=== PATIENT | female | born 1975 | race Caucasian/White ===

== ENCOUNTER → 2016-09-23 | Outpatient (CLI) | payer BC ==
[~2016-09-23] MED LIST: ADAL1KIT SC; AMPH10TA2 PO; FOLI1POW10 PO; LEVOPOW36 PO; MELO7.5T6 PO; METH2.5T PO; NAPR-1169 PO; SENN1TAB25 PO
--- NOTE | 2016-09-23 13:31 | MAMMOGRAPHY REPORT ---
BILATERAL DIGITAL SCREENING MAMMOGRAM TOMOSYNTHESIS WITH CAD: 09/23/2016 CLINICAL HISTORY: Routine screening. Patient has no complaints. TECHNIQUE: Breast tomosynthesis in addition to standard 2D mammography was performed. Current study was also evaluated with a Computer Aided Detection (CAD) system. COMPARISON: Comparison is made to exams dated: 09/21/2015 mammogram, 10/21/2013 mammogram, 09/17/2014 yanira mogram, 05/01/2014 mammogram, 10/29/2013 mammogram, and 10/15/2012 mammogram - [facility] nt. BREAST COMPOSITION: The tissue of both breasts is heterogeneously dense, which may obscure small ma sses. FINDINGS: No suspicious masses, calcifications, or areas of architectural distortion are noted in e ither breast. There has been no significant interval change compared to prior exams. IMPRESSION: ACR BI-RADS CATEGORY 1: NEGATIVE There is no mammographic evidence of malignancy. A 1 year screening mammogram is recommended. The p atient will receive written notification of the results. Approximately 10% of breast cancers are not detected with mammography. A negative mammographic repor t should not delay biopsy if a clinically suggestive mass is present. Taryn Arevalo M.D. ah/:09/23/2016 12:23:50 Bobtailer: Barbie العلي(R)(M), [facility] letter sent: Normal 1/2 BI-RADS Code: ACR BI-RADS Category 1: Negative
== END | disposition home or self-care (01) ==
LOC: C.MAMM 09:03
PROVIDERS: ATTEND Nurse Practitioner Women's Health
DX: Z12.31 Encounter for screening mammogram for malignant neoplasm of breast (principal)

== ENCOUNTER → 2016-12-15 | Outpatient (CLI) | payer BC | END | disposition home or self-care (01) | LOC: C.LABBFT 11:11 | PROVIDERS: ATTEND Physician Assistant Medical | DX: E03.9 Hypothyroidism, unspecified (principal) ==

== ENCOUNTER → 2017-03-02 | Outpatient (CLI) | payer BC | END | disposition home or self-care (01) | LOC: C.LABBFT 07:49 | PROVIDERS: ATTEND Physician Assistant Medical | DX: E03.9 Hypothyroidism, unspecified (principal) ==

== ENCOUNTER → 2017-09-26 | Outpatient (CLI) | payer BC ==
[2017-09-26 12:34] LABS: BASO % 1.7 %; BASO ABS # 0.07 K/uL (0-0.2); EOS % 3.8 %; EOS ABS # 0.16 K/uL (0-0.5); HEMATOCRIT 39.2 % (37-47); IG# 0.01 K/uL (0.00-0.02); LYMPH % 37.1 %; LYMPH ABS # 1.55 K/uL (1.2-3.4); MEAN CELL VOLUME 94.7 fL (80-100); MEAN CORPUSCULAR HEMOGLOBIN 31.4 pg (25-34); MEAN CORPUSCULAR HGB CONC 33.2 g/dl (32-36); MEAN PLATELET VOLUME 10.4 fL (7.4-10.4); MONO % 6.7 %; MONO ABS # 0.28 K/uL (0.11-0.59); NEUT % 50.5 %; NEUT ABS # 2.11 K/uL (1.4-6.5); PLATELET COUNT 374 K/uL (130-400); RED CELL DISTRIBUTION WIDTH CV 12.8 % (11.5-14.5); WHITE BLOOD COUNT 4.18 K/uL (4.8-10.8)
== END | disposition home or self-care (01) ==
LOC: C.LABBFT 11:00
PROVIDERS: ATTEND Physician Assistant Medical
DX: R53.83 Other fatigue (principal)

== ENCOUNTER → 2017-09-29 | Outpatient (CLI) | payer BC ==
--- NOTE | 2017-10-02 13:59 | MAMMOGRAPHY REPORT ---
BILATERAL DIGITAL SCREENING MAMMOGRAM TOMOSYNTHESIS WITH CAD: 09/29/2017 CLINICAL HISTORY: Routine screening. TECHNIQUE: Breast tomosynthesis in addition to standard 2D mammography was performed. Current study was also evaluated with a Computer Aided Detection (CAD) system. COMPARISON: Comparison is made to exams dated: 09/23/2016 mammogram, 09/21/2015 mammogram, 09/17/2014 yanira mogram, 10/21/2013 mammogram, 10/15/2012 mammogram, and 06/29/2011 mammogram - [facility] er. BREAST COMPOSITION: The tissue of both breasts is heterogeneously dense, which may obscure small mas ses. FINDINGS: There are new grouped calcifications within the left medial breast at approximately 9:00. Additionally, there is a rounded 9 mm asymmetry seen in association with the calcifications on the to mosynthesis images. Recommend spot modification views and breast ultrasound for further evaluation. The remainder of both breasts are stable compared to prior exams, without suspicious masses, calcific ations, or areas of architectural distortion noted. A linear scar marker denotes a scar on the left upper outer breast. IMPRESSION: ACR BI-RADS CATEGORY 0: INCOMPLETE EVALUATION: NEED ADDITIONAL IMAGING EVALUATION New grouped calcifications and an associated asymmetry within the left 9:00 breast, for which additio nal imaging evaluation is recommended. The patient will be called to schedule an appointment. Approximately 10% of breast cancers are not detected with mammography. A negative mammographic report should not delay biopsy if a clinically suggestive mass is present. Taryn Arevalo M.D. /:09/29/2017 16:27:43 Wood Caulker: Ghada العلي(R)(M), [facility] letter sent: Addl Imaging 0 BI-RADS Code: ACR BI-RADS Category 0: Incomplete Evaluation: Need Additional Imaging Evaluation
== END | disposition home or self-care (01) ==
LOC: C.MAMM 08:18
PROVIDERS: ATTEND Obstetrics & Gynecology
DX: Z12.31 Encounter for screening mammogram for malignant neoplasm of breast (principal); R92.1 Mammographic calcification found on diagnostic imaging of breast; N64.89 Other specified disorders of breast

== ENCOUNTER → 2017-10-02 | Outpatient (CLI) | payer BC | END | disposition home or self-care (01) | LOC: C.PAPS 09:55 | PROVIDERS: ATTEND Obstetrics & Gynecology | DX: Z01.419 Encounter for gynecological examination (general) (routine) without abnormal findings (principal) ==

== ENCOUNTER → 2017-10-03 | Outpatient (CLI) | payer BC ==
--- NOTE | 2017-10-03 14:59 | MAMMOGRAPHY REPORT ---
UNILATERAL LEFT DIGITAL DIAGNOSTIC MAMMOGRAM AND TARGETED LEFT ULTRASOUND: 10/03/2017 CLINICAL HISTORY: Callback from screening mammogram for left breast calcifications and asymmetry. TECHNIQUE: Spot magnification left CC and ML views were obtained. COMPARISON: Comparison is made to exams dated: 09/23/2016 mammogram, 09/29/2017 mammogram, 09/21/2015 ma mmogram, 09/17/2014 mammogram, 10/29/2013 mammogram, and 10/21/2013 mammogram - [facility]. BREAST COMPOSITION: The tissue of the left breast is heterogeneously dense, which may obscure small masses. FINDINGS: Spot magnification views demonstrate new grouped pleomorphic calcifications in the left bernardo ast at approximately 9:00. Additionally, there is a nodular 9 mm asymmetry seen in association with the calcifications on the true lateral view, for which ultrasound was performed. The total extent of the findings measures approximately 2.8 x 1.8 x 1.6 cm mammographically. Targeted ultrasound was performed of the area of the asymmetry and calcifications within the left 9:0 0 breast. In the left 9:00 periareolar breast, there is an irregular hypoechoic mass which measures 1.1 x 0.9 x 0.7 cm. Other surrounding ill-defined hypoechoic tissue is also seen, which contains ech ogenic foci which correspond with the mammographic calcifications. The total extent of the abnormali ty measures approximately 2.8 x 1.1 cm on the ultrasound. These findings correspond with the mammogr aphic findings and are highly suspicious for malignancy. Ultrasound-guided biopsy is recommended for further evaluation. IMPRESSION: ACR BI-RADS CATEGORY 5: HIGHLY SUGGESTIVE OF MALIGNANCY, TARGETED ULTRASOUND ACR BI-RADS CATEGORY 5: HIGHLY SUGGESTIVE OF MALIGNANCY Irregular hypoechoic 1.1 cm mass and surrounding ill-defined hypoechoic tissue as well as associated grouped pleomorphic calcifications seen within the left 9:00 breast. The total extent of the abnorma lity measures 2.8 x 1.8 x 1.6 cm. Findings are highly suspicious for malignancy and ultrasound-guide d core needle biopsy with specimen radiography is recommended for further evaluation. A phone call was made to the physician's office to confirm faxed results were received. The patient has been verbally notified of the results. She tentatively scheduled the biopsy before leaving [facility]. Approximately 10% of breast cancers are not detected with mammography. A negative mammographic report should not delay biopsy if a clinically suggestive mass is present. Taryn Arevalo M.D. ah/:10/03/2017 12:16:47 Contractor Buyer: Ghada SAUCEDO)(Anabella), [facility] letter sent: Abnormal 4/5 BI-RADS Code: ACR BI-RADS Category 5: Highly Suggestive Of Malignancy Ultrasound BI-RADS: ACR BI-RAD S Category 5: Highly Suggestive Of Malignancy
== END | disposition home or self-care (01) ==
LOC: C.MAMM 10:24
PROVIDERS: ATTEND Obstetrics & Gynecology
DX: R92.1 Mammographic calcification found on diagnostic imaging of breast (principal); N63.21 Unspecified lump in the left breast, upper outer quadrant

== ENCOUNTER → 2017-10-04 | Outpatient (CLI) | payer BC ==
--- NOTE | 2017-10-04 10:04 | Discharge Instructions ---
Discharge Instructions Procedure Procedure Date: Oct 04, 2017. Reason for visit: Left Mass/Calcs. Discharge Discharge Date: Oct 04, 2017. Discharge Diagnosis: status post breast biopsy Instructions Activity Recommendations: Additional Limitations (see below) Return to School/Work: no limitations Recommended Home Diet: No Limitations Provider Instructions: ACTIVITY RECOMMENDATIONS: * No lifting, pushing, pulling or exercising the affected side for three days. RETURN TO SCHOOL/WORK: * You may return to work/school after the procedure, but do not perform any strenuous activities for 24 to 48 hours. MEDICATIONS: * Tylenol (two 325 mg) every four to six hours if needed for mild pain (if not allergic to Tylenol). DIET: * Resume previous diet. SPECIAL CARE INSTRUCTIONS: * Keep biopsy site dry for 24 hours. May shower after 24 hours, but do not soak (bathe) incision. * May remove Tegaderm (plastic patch) tomorrow AFTER showering. * Leave the steri-strips on for one week. Allow the steri-strips to fall off by themselves. If not off after one week, you may remove them. You may place a Bandaid crosswise over the strips, if desired. * Apply ice 10 minutes on and 10 minutes off as needed. * Wear a bra at bedtime to sleep more comfortably for 2-3 days. * Your referring physician should have the results after approximately 5 to 7 business days. * Call for unusual bleeding, fever, drainage, etc or if you have any questions call during normal business hours or after hours call Dr Arevalo, . FOLLOW UP VISIT: Follow-up with Referring Physician as scheduled. Allergies Coded Allergies: Amoxicillin (Verified Allergy, Unknown, UNCODED, 10/25/13) Cat Dander (Verified Allergy, Unknown, UNCODED, 10/25/13) Penicillins (Verified Allergy, Unknown, 10/25/13) Ania Ruvalcaba Recommendations: Call your doctor if: * Temperature above 101 degrees * Pain not relieved by pain medicine ordered * There is increased drainage or redness from any incision * You have any unanswered questions or concerns. Your Doctors Instructions noted above were prepared by provider Taryn Arevalo. Patient Signature Section: Patient Instructions Signature Page Saba Pacheco Patient (or Guardian) Signature/Date: I have read and understand the instructions given to me by my caregivers. Caregiver/RN/Doctor Signature/Date: The above-named patient and/or guardian has received patient instructions on this date. + Original Patient Signature Page (only) stays with chart. Please make copy for patient.
--- NOTE | 2017-10-04 14:12 | MAMMOGRAPHY REPORT ---
ULTRASOUND GUIDED BIOPSY LEFT BREAST: 10/04/2017 CLINICAL HISTORY: Left 9:00 breast mass and associated calcifications. PATIENT CONSENT: The procedure, risks and benefits were discussed with the patient and informed writt en consent was obtained. A timeout was performed immediately prior to the procedure. PROCEDURE DESCRIPTION: With ultrasound guidance, aseptic technique, and lidocaine as the local anesth etic (1% lidocaine to anesthetize the skin and 1% lidocaine with epinephrine to anesthetize the deepe r tissues), the mass of concern in the left 9:00 breast was sampled 5 times with a 14-gauge Achieve b iopsy needle. Immediately thereafter, with ultrasound guidance, aseptic technique, and lidocaine as the local anesthetic, a metallic localizer clip was placed at the biopsy site. A specimen radiograp h was performed, which shows calcifications to be present within the samples. Direct pressure was ap plied to the site immediately post procedure and hemostasis was achieved. Postprocedure unilateral m ammograms were performed to confirm clip placement. The patient tolerated the procedure without comp lication. She was given wound care instructions. The specimens were sent to pathology for analysis. COMPARISON: Comparison is made to exams dated: 10/03/2017 mammogram, 10/03/2017 ultrasound, 09/29/2017 mammogram, 09/17/2014 mammogram, 10/29/2013 mammogram, and 10/21/2013 mammogram - [facility]ter. IMPRESSION: ULTRASOUND GUIDED BIOPSY Ultrasound-guided core needle biopsy of the left 9:00 breast mass and associated calcifications, with clip placement. The patient will receive pathology results from her referring provider. If patholo gy results are malignant, recommend preoperative bilateral breast MRI given the dense breast parjumay huy mammographically. Taryn Arevalo M.D. /:10/04/2017 10:06:25 Attending Technologist: Taryn Arevalo MD, [facility] Rotor Winder: Barbie Holm, [facility]
--- NOTE | 2017-10-04 14:15 | MAMMOGRAPHY REPORT ---
UNILATERAL LEFT DIGITAL DIAGNOSTIC MAMMOGRAM TOMOSYNTHESIS: 10/04/2017 CLINICAL HISTORY: Status post left breast biopsy. TECHNIQUE: Breast tomosynthesis in addition to standard 2D mammography was performed. Postprocedura l left CC and ML tomosynthesis images were obtained. COMPARISON: Comparison is made to exams dated: 10/03/2017 mammogram, 10/03/2017 ultrasound, 09/29/2017 mammogram, 09/23/2016 mammogram, 09/21/2015 mammogram, and 09/17/2014 mammogram - [facility] nter. BREAST COMPOSITION: The tissue of the left breast is heterogeneously dense, which may obscure small masses. FINDINGS: A new biopsy marker clip is seen at the site of the biopsied mass and calcifications within the left 9:00 breast. No significant postbiopsy hematoma is seen. IMPRESSION: POST PROCEDURE IMAGING FOR MARKER PLACEMENT New biopsy clip status post left breast biopsy. Pathology results are pending. Approximately 10% of breast cancers are not detected with mammography. A negative mammographic report should not delay biopsy if a clinically suggestive mass is present. Taryn Arevalo M.D. ah/:10/04/2017 10:17:02 Guest Relations Receptionist: Barbie العلي(R)(M), [facility] BI-RADS Code: Post Procedure Imaging For Marker Placement
== END | disposition home or self-care (01) ==
LOC: C.MAMM 09:32
PROVIDERS: ATTEND Obstetrics & Gynecology
DX: C50.912 Malignant neoplasm of unspecified site of left female breast (principal); R92.0 Mammographic microcalcification found on diagnostic imaging of breast

== ENCOUNTER → 2017-11-07 | Outpatient (CLI) | payer BC ==
[~2017-11-07] MED LIST changes: +ETAN25IN4 PO; +LEVO1IUD2 PV; +LEVO88TA PO; +PRLSR20 PO; +SUMA50TA15 PO
--- NOTE | 2017-11-07 14:06 | ECHOCARDIOGRAM REPORT ---
*NOTICE TO RECEIVING CONSTITUTION PARTY AGENCY This information is strictly Confidential and protected under [place] law. [place] law prohibits you from making any further disclosure of this information unless further disclosure is expressly permitted by the written consent of the person to whom it pertains or is authorized by law. A general authorization for the release of medical or other information is not sufficient for this purpose. Hospital accepts no responsibility if the information is made available to any other person, INCLUDING THE PATIENT. Interpretation Summary * Name: SHIMA PETERSON Study Date: 11/07/2017 12:33 PM BP: 100/70 mmHg * Patient Location: [facility] HR: 71 * : 1975 (M/d/yyyy) Gender: Female Height: 67 in * Age: 41 yrs Ethnicity: [place] Weight: 144 lb * Ordering Physician: Naun Veras * Referring Physician: Naun Veras * Performed By: Meche Razo RDCS * * Reason For Study: BREAST CA * BSA: 1.8 m2 * -- Conclusions -- * Left ventricular systolic function is normal. * Grade I diastolic dysfunction, (abnormal relaxation pattern). * No significant valvular disease Procedure Details * A complete two-dimensional transthoracic echocardiogram was performed (2D, M-mode, Doppler and color flow Doppler). Left Ventricle * The left ventricle is normal in size. * There is normal left ventricular wall thickness. * Ejection Fraction = 65-70%. * Left ventricular systolic function is normal. * Grade I diastolic dysfunction, (abnormal relaxation pattern). * The left ventricular wall motion is normal. Right Ventricle * The right ventricle is normal in size and function. * The right ventricular systolic function is normal as assessed by tricuspid annular plane systolic excursion (TAPSE) (normal >1.5 cm). Atria * The left atrial size is normal. * Right atrial size is normal. Mitral Valve * The mitral valve is grossly normal. * Significant mitral regurgitation is absent. Tricuspid Valve * The tricuspid valve is not well visualized, but is grossly normal. * Significant tricuspid regurgitation is absent. Aortic Valve * The aortic valve is normal in structure and function. * The aortic valve is trileaflet. * No hemodynamically significant valvular aortic stenosis. * There is no significant aortic regurgitation. Pulmonic Valve * The pulmonic valve is not well visualized. Great Vessels * The aortic root is normal size. Pericardium/Pleural * There is no pericardial effusion. Great Vessels * Normal inferior vena cava diameter and respiratory variation suggests normal central venous pressure. MMode 2D Measurements and Calculations IVSd 1.1 cm IVSs 1.6 cm LVIDd 5.0 cm LVIDs 3.1 cm LVPWd 1.0 cm LVPWs 1.4 cm IVS/LVPW 1.1 FS 38.8 % EDV(Teich) 120.9 ml ESV(Teich) 37.5 ml EF(Teich) 68.9 % EDV(cubed) 128.6 ml ESV(cubed) 29.4 ml EF(cubed) 77.1 % % IVS thick 53.8 % % LVPW thick 34.7 % LV mass(C)d 194.0 grams LV mass(C)dI 110.3 grams/m\S\2 LV mass(C)s 163.4 grams LV mass(C)sI 92.9 grams/m\S\2 SV(Teich) 83.3 ml SI(Teich) 47.4 ml/m\S\2 SV(cubed) 99.2 ml SI(cubed) 56.4 ml/m\S\2 Ao root diam 3.4 cm Ao root area 9.2 cm\S\2 LA dimension 3.3 cm LA/Ao 0.96 LVAd ap4 27.4 cm\S\2 LVLd ap4 8.2 cm EDV(MOD-sp4) 78.7 ml EDV(sp4-el) 78.0 ml LVAs ap4 14.5 cm\S\2 LVLs ap4 6.6 cm ESV(MOD-sp4) 28.6 ml ESV(sp4-el) 26.9 ml EF(MOD-sp4) 63.6 % EF(sp4-el) 65.6 % LVAd ap2 28.8 cm\S\2 LVLd ap2 7.9 cm EDV(MOD-sp2) 89.7 ml EDV(sp2-el) 88.7 ml LVAs ap2 14.2 cm\S\2 LVLs ap2 6.5 cm ESV(MOD-sp2) 27.7 ml ESV(sp2-el) 26.4 ml EF(MOD-sp2) 69.2 % EF(sp2-el) 70.2 % LVLd %diff -2.93 % EDV(MOD-bp) 85.2 ml LVLs %diff -1.97 % ESV(MOD-bp) 28.4 ml EF(MOD-bp) 66.7 % SV(MOD-sp4) 50.0 ml SI(MOD-sp4) 28.5 ml/m\S\2 SV(MOD-sp2) 62.1 ml SI(MOD-sp2) 35.3 ml/m\S\2 SV(MOD-bp) 56.8 ml SI(MOD-bp) 32.3 ml/m\S\2 SV(sp4-el) 51.2 ml SI(sp4-el) 29.1 ml/m\S\2 SV(sp2-el) 62.2 ml SI(sp2-el) 35.4 ml/m\S\2 Doppler Measurements and Calculations MV E max enoch 73.8 cm/sec MV A max enoch 89.7 cm/sec MV E/A 0.82 MV dec time 0.23 sec Ao V2 max 136.3 cm/sec Ao max PG 7.4 mmHg Ao max PG (full) 4.2 mmHg LV V1 max PG 3.3 mmHg LV V1 max 90.2 cm/sec
== END | disposition home or self-care (01) ==
LOC: C.CPL 12:28
PROVIDERS: ATTEND Internal Medicine Hematology & Oncology
DX: C50.112 Malignant neoplasm of central portion of left female breast (principal)

== ENCOUNTER → 2017-11-20 | Day surgery (SDC) | payer BC ==
[2017-11-09 15:01] VITALS: BMI 22.0
[~2017-11-20] VITALS: Ht 172.7 cm; Wt 65.0 kg
[~2017-11-20] MED LIST changes: -ADAL1KIT SC; +ATROPINE SULFATE 0.1 MG/ML 5ML SYR IV PRN; +CEFAZOLIN SOD 1 GM VIAL ONE; +CLINDAMYCIN IV 900 MG in DEXTROSE 5% 50ML 44 ML IV SCH; +EpHEDrine SULFATE 50MG/5ML SYR ONE; +EpHEDrine SULFATE INJ 50 MG/ML AMP IV PRN; +FENTANYL CITRATE INJ 50 MCG/1 ML 2 ML VIAL ONE; +HEPARIN SOD (PORCINE) 1000 UNIT/ML 10 ML VIAL ONE; +HYDR-5688 PO; +HYDROCODONE/ACETAMIN 5/325MG TAB PO PRN; +LACTATED RINGER'S 1000ML 1,000 ML IV SCH; -LEVOPOW36 PO; +LIDOCAINE HCL 1% 20 ML VIAL ONE; +LIDOCAINE HCL 2% 2 ML VIAL (20MG/ML) ONE; +MIDAZOLAM HCL 1 MG/ML 2ML VIAL ONE; -NAPR-1169 PO; +ONDANSETRON INJ 2 MG/ML 2 ML VIAL IV PRN; +PROPOFOL IV EMULSION 10 MG/ML 20 ML VIAL ONE; +THROMBIN FOR SOLN 20000 UNIT KIT ONE
[2017-11-20 06:54] VITALS: BP 105/71; PULSE 91; TEMP 36.8; O2SAT 98; Ht 172.7 cm; Wt 65.0 kg
--- NOTE | 2017-11-20 06:57 | History & Physical Bridge Note ---
H&P Re-Evaluation Bridge Note: I have examined the patient, reviewed the History & Physical and in the interval since the performance of the History & Physical I have noted the following changes of clinical significance: No changes noted
--- NOTE | 2017-11-20 09:03 | [facility] Operative Report ---
Operative Report Operative Date November 20, 2017. Pre-Operative Diagnosis Need for chemotherapy Post-Operative Diagnosis Same Procedure(s) Performed Insertion of A-Port in Left Cephalic Vein Surgeon Dr Marie 4Th Grade Math Teacher Surgeon(s) None Estimated Blood Loss 5ml Specimens None Drains None Anesthesia Type MAC Complication(s) none Disposition Recovery Room / PACU I attest to the content of the Intraoperative Record and any orders documented therein. Any exceptions are noted below.
--- NOTE | 2017-11-20 09:12 | Discharge Instructions ---
Discharge Instructions Date of Service November 20, 2017. Visit Reason for Visit: Left Breast Cancer Discharge Discharge Diagnosis / Problem: port placement Discharge Goals Goal(s): Decrease discomfort, Improve function, Improve disease control Activity Recommendations Activity Limitations: as noted below Lifting Limitations: no more than 25 pounds (for 2 weeks) Exercise/Sports Limitations: until after follow-up appointment May Resume Sexual Activity: when tolerated Shower/Bathe: tomorrow Driving or Machine Use: resume 1 day after discharge Anesthesia . Post Anesthesia Instructions: If you have had General Anesthesia or IV Sedation: * Do not drive today. * Resume driving when surgeon permits. * Do not make important decisions or sign legal documents today. * Call surgeon for: 1. Temperature elevations greater than 101 degrees F. 2. Uncontrollable pain. 3. Excessive bleeding. 4. Persistent nausea and vomiting. 5. Medication intolerance (nausea, vomiting or rash). * For nausea and vomiting use only clear liquids such as: tea, soda, bouillon until nausea subsides, then gradually increase diet as tolerated. * If you have any concerns or questions, call your surgeon's office. If physician is unavailable and it is an emergency, call 911 or go to the nearest emergency room. . Instructions / Follow-Up Instructions / Follow-Up SPECIAL CARE INSTRUCTIONS: * Cover incisions and change daily for comfort/drainage. * May use ibuprofen for pain as tolerated. * Expect some swelling and bruising. Call your doctor if: * Temperature above 101 degrees * Pain not relieved by pain medicine ordered * There is increased drainage or redness from any incision * You have any unanswered questions or concerns [phone]. FOLLOW UP VISIT: If not already scheduled, please call the office for a follow-up visit. for 2 weeks - suture removal OFFICE PHONE NUMBER: Dr. Marie Office Diet Recommendations Recommended Home Diet: resume previous diet Procedures Procedures Performed: Insertion of A-Port in Left Cephalic Vein Pending Studies Studies pending at discharge: no Medical Emergencies . Who to Call and When: Medical Emergencies: If at any time you feel your situation is an emergency, please call 911 immediately. . Non-Emergent Contact Non-Emergency issues call your: Primary Care Provider, Surgeon . . "Provider Documentation" section prepared by John Marie. .
[2017-11-20 09:35] VITALS: BP 100/46; PULSE 83; TEMP 36.8; O2SAT 98
--- NOTE | 2017-11-20 09:36 | Anesthesiology Progress Note ---
Anesthesia Post Op Note Date & Time November 20, 2017 at 09:36 Vital Signs Pain Intensity: 0 Vital Signs Past 12 Hours Date Time Temp Pulse Resp B/P (MAP) Pulse Ox O2 Delivery O2 Flow Rate FiO2 11/20/17 09:30 36.3 89 16 99/54 99 Room Air 11/20/17 09:20 90 16 103/59 99 Room Air 11/20/17 09:10 36.2 101 18 102/49 100 Oxymask 3 11/20/17 06:54 36.8 91 18 105/71 (82) 98 Room Air Notes Mental Status: alert / awake / arousable, participated in evaluation Pt Amnestic to Procedure: Yes Nausea / Vomiting: adequately controlled Pain: adequately controlled Airway Patency, RR, SpO2: stable & adequate BP & HR: stable & adequate Hydration State: stable & adequate Anesthetic Complications: no major complications apparent
--- NOTE | 2017-11-20 09:56 | DIAGNOSTIC IMAGING REPORT ---
CHEST ONE VIEW PORTABLE CLINICAL HISTORY: A-Port catheter placement COMPARISON STUDY: 12/27/2012 FINDINGS: The cardiac and mediastinal contours are normal. There is no evidence of focal pulmonary consolidation. There is no evidence of failure. No pleural effusions are visualized.[ There has been interval placement of a left-sided A-Port catheter. The tip projects over the superior vena cava. There is no pneumothorax. IMPRESSION: No pneumothorax status post placement of a left-sided A-Port catheter. Tip projects over the superior vena cava. Electronically signed by: Lorne Walker M.D. 11/20/2017 9:55 AM Dictated Date/Time: 11/20/2017 9:55 AM
[2017-11-20 10:10] VITALS: BP 108/50; PULSE 75; TEMP 36.8; O2SAT 98
--- NOTE | 2017-11-20 11:01 | OPERATIVE REPORT ---
DATE OF OPERATION: 11/20/2017 NAME OF OPERATION: Access port placement. PREOPERATIVE DIAGNOSIS: Breast cancer. POSTOPERATIVE DIAGNOSIS: Breast cancer. STAFF SURGEON: John Marie MD ANESTHESIA: Plain lidocaine 1% with sedation. DESCRIPTION OF PROCEDURE: The patient was brought in the operating room and placed on the operating table in supine position. A towel roll was placed between her shoulders. Her chest was prepped and draped in usual fashion. Plain lidocaine 1% was used to anesthetize the skin and subcutaneous tissue in the left upper chest. Incision was made carrying dissection down identifying the deltopectoral groove and cephalic vein. The vein was ligated distally using 2-0 silk suture and then partially opened. Catheter passed into the superior vena cava under fluoroscopy, secured using 2-0 silk suture. It was aspirated and flushed with heparinized solution. A pocket was fashioned in the chest wall. The port was attached to the catheter, placed into the pocket and secured to the chest wall using 3-0 Prolene suture. The port was aspirated and flushed with heparinized solution. The site was irrigated with antibiotic solution. Subcutaneous tissue reapproximated using 2-0 chromic suture and then the skin reapproximated using 5-0 Prolene suture. Dressing applied and the patient transferred to recovery room in stable condition. I attest to the content of the Intraoperative Record and any orders documented therein. Any exception s are noted below.
== END | disposition home or self-care (01) ==
LOC: C.ACU 06:22
PROVIDERS: ATTEND Surgery
DX: C50.919 Malignant neoplasm of unspecified site of unspecified female breast (principal); E03.9 Hypothyroidism, unspecified; Z87.891 Personal history of nicotine dependence; Z85.43 Personal history of malignant neoplasm of ovary; Z79.899 Other long term (current) drug therapy; Z88.0 Allergy status to penicillin; Z88.1 Allergy status to other antibiotic agents; Z98.890 Other specified postprocedural states; Z90.89 Acquired absence of other organs; Z98.818 Other dental procedure status; Z83.3 Family history of diabetes mellitus; Z80.41 Family history of malignant neoplasm of ovary; Z80.3 Family history of malignant neoplasm of breast; Z82.61 Family history of arthritis

== ENCOUNTER → 2018-03-05 | Outpatient (CLI) | payer BC ==
[~2018-03-05] MED LIST changes: -ATROPINE SULFATE 0.1 MG/ML 5ML SYR IV PRN; -CEFAZOLIN SOD 1 GM VIAL ONE; -CLINDAMYCIN IV 900 MG in DEXTROSE 5% 50ML 44 ML IV SCH; +DEXA0.5E3 PO; +DOCU100C31 PO; -ETAN25IN4 PO; -EpHEDrine SULFATE 50MG/5ML SYR ONE; -EpHEDrine SULFATE INJ 50 MG/ML AMP IV PRN; -FENTANYL CITRATE INJ 50 MCG/1 ML 2 ML VIAL ONE; -HEPARIN SOD (PORCINE) 1000 UNIT/ML 10 ML VIAL ONE; -HYDR-5688 PO; -HYDROCODONE/ACETAMIN 5/325MG TAB PO PRN; -LACTATED RINGER'S 1000ML 1,000 ML IV SCH; -LIDOCAINE HCL 1% 20 ML VIAL ONE; -LIDOCAINE HCL 2% 2 ML VIAL (20MG/ML) ONE; -METH2.5T PO; -MIDAZOLAM HCL 1 MG/ML 2ML VIAL ONE; +NLSI; +NUTR-218 PO; +ONDA4TAB46 PO; -ONDANSETRON INJ 2 MG/ML 2 ML VIAL IV PRN; +PRD/1 PO; +PROC10TA PO; -PROPOFOL IV EMULSION 10 MG/ML 20 ML VIAL ONE; -SENN1TAB25 PO; -THROMBIN FOR SOLN 20000 UNIT KIT ONE
[2018-03-05 08:42] LABS: HEMATOCRIT 29.1 % (37-47); HEMOGLOBIN 9.5 g/dL (12.0-16.0); IG# 0.01 K/uL (0.00-0.02); LYMPH % 7.8 %; LYMPH ABS # 0.71 K/uL (1.2-3.4); MEAN CELL VOLUME 85.6 fL (80-100); MEAN CORPUSCULAR HEMOGLOBIN 27.9 pg (25-34); MEAN CORPUSCULAR HGB CONC 32.6 g/dl (32-36); MEAN PLATELET VOLUME 8.6 fL (7.4-10.4); MONO % 7.2 %; MONO ABS # 0.65 K/uL (0.11-0.59); NEUT % 84.9 %; PLATELET COUNT 186 K/uL (130-400); RED CELL DISTRIBUTION WIDTH CV 17.9 % (11.5-14.5); RED CELL DISTRIBUTION WIDTH SD 53.9 fL (36.4-46.3); WHITE BLOOD COUNT 9.07 K/uL (4.8-10.8)
[2018-03-05 09:01] LABS: ALBUMIN 3.5 gm/dl (3.4-5.0); ALT/SGPT 37 U/L (12-78); AST/SGOT 17 U/L (15-37); BLOOD UREA NITROGEN 11 mg/dl (7-18); CARBON DIOXIDE 26 mmol/L (21-32); CREATININE 0.55 mg/dl (0.60-1.20); GLUCOSE 114 mg/dl (70-99); POTASSIUM 3.5 mmol/L (3.5-5.1); SODIUM 141 mmol/L (136-145)
[2018-03-05 09:10] LABS: ALKALINE PHOSPHATASE 79 U/L (45-117); TOTAL PROTEIN 6.9 gm/dl (6.4-8.2)
== END | disposition home or self-care (01) ==
LOC: C.LABSPEC 08:28
PROVIDERS: ATTEND Internal Medicine Hematology & Oncology
DX: C50.112 Malignant neoplasm of central portion of left female breast (principal); D64.9 Anemia, unspecified

== ENCOUNTER 2023-08-09 19:49 | Observation (INO) ==
[2023-08-09 20:54] LABS: Hematocrit (blood only) 25.2 % (37.0-47.0); Mean Corpuscular Hemoglobin 27.9 pg (25.0-34.0); Mean Corpuscular Hgb Conc 31.7 g/dL (32.0-36.0); Mean Corpuscular Volume 87.8 fL (80.0-100.0); Mean Platelet Volume 9.2 fL (9.4-12.4); Platelet Count 491 K/uL (130-400); RDW Coefficient of Variation 12.9 % (11.5-14.5); RDW Standard Deviation 41.2 fL (36.4-46.3); Red Blood Count 2.87 M/uL (4.20-5.40); White Blood Count 4.59 K/ul (4.8-10.8)
[2023-08-09 21:08] LABS: Alanine Aminotransferase 8 U/L (7-52); Albumin Globulin Ratio 1.7 (0.9-2); Alkaline Phosphatase 57 U/L (34-104); Anion Gap 5 (3-11); Aspartate Aminotransferase 15 U/L (13-39); BUN Creatinine Ratio 15.1 (10-20); Bilirubin,Total 0.2 mg/dl (0.2-1.0); Blood Urea Nitrogen 13 mg/dl (6-23); Carbon Dioxide 28 mmol/L (21-32); Chloride 106 mmol/L (98-107); Creatinine Clr Calc Pharmacy 76.9 ml/min; Est GFR (African American) 91.9 ml/min; Est GFR (Non-African American) 79.3 ml/min; Globulin 2.4 gm/dl (2.5-4.0); Glucose 123 mg/dl (70-99(Fasting)); Potassium 3.7 mmol/L (3.5-5.1); Sodium 139 mmol/L (136-145); Total Protein 6.4 gm/dl (6.0-8.3)
[2023-08-09 21:13] LABS: Troponin I High Sensitivity < 2.3 pg/ml (0-14)
[2023-08-09 21:22] LABS: Partial Thromboplastin Ratio 0.9; Partial Thromboplastin Time 25 Seconds (21-31); Prothrombin Time 11.1 Seconds (9.0-12.0)
[2023-08-09] MEDS ORDERED: SODIUM CHLORIDE 0.9% 250 ML IV PRN (22:06)
--- NOTE | 2023-08-09 22:12 | Emergency Department Note ---
Impression & Plan Acute lower GI bleeding ADMIT ED Provider Note HPI: History obtained from patient. The patient is a 47-year-old female with history of breast cancer, no longer undergoing any chemotherapy or radiation therapy, presents emergency department with chief complaint of progressively worsening rectal bleeding over the course of the past several months. Patient states that every morning she is having episodes of rectal bleeding. Patient states that she has also been having increasing shortness of breath with exertion over about the past 2 weeks. Patient saw her PCP yesterday and had blood work done and her hemoglobin was 7.9. This is an acute change from the fall when her hemoglobin was normal. Patient was therefore advised to come to the emergency department after discussing this with multiple outpatient providers. On arrival here to the ED the patient is hemodynamically stable, she is in no acute distress on my initial assessment. ROS: - Per HPI Differential Diagnosis: Lower GI hemorrhage, external hemorrhoids, internal hemorrhoids, colonic AVM, colon cancer, symptomatic anemia, amongst other potential pathologies. *Outpatient medications and allergy history reviewed. PE: General: Alert HEENT: Normocephalic, trachea midline Eyes: Extraocular eye movement is intact, no scleral erythema Pulmonary: Clear to auscultation bilaterally, no wheezing Cardio: Regular rate and rhythm GI: Abdomen is soft to palpation, noninvasive rectal examination performed with female RN at the bedside shows evidence of external hemorrhoids without active bleeding : No suprapubic tenderness MSK: No evidence of trauma or malformation of the extremities, no edema Skin: No evidence of rash Neuro: Alert, no focal deficits Psychiatric: Cooperative INDEPENDENT INTERPRETATIONS: telemetry monitor: (As interpreted by myself): - An order was placed for continuous cardiac monitoring - Patient was noted to be in sinus rhythm with a rate of 75 EKG: (As interpreted by myself): Rate: 84 Rhythm: Normal sinus rhythm Intervals: Within normal limits ST changes: No ST elevation Time: 2027 Interventions provided in ED: -Packed red blood cell transfusion Medical Decision Making: IV was established and lab work obtained, patient was placed on equipment monitor phototypesetting. Lab work shows mild leukopenia at 4.59, hemoglobin is 8.0 compared to 7.9 yesterday however patient had a normal hemoglobin in April 2023. Platelet count is 491, CMP does not show any critical findings. BUN is normal. Troponin is negative. EKG per my interpretation shows normal sinus rhythm with a rate of 84. Patient's MCV is normal, low suspicion that this is related to iron deficiency at this time, given the patient's complaint of near daily rectal bleeding over the past 2 months I suspect that this is related to chronic lower GI bleed now with symptomatic anemia. Patient does not have any abdominal pain therefore CT imaging of the abdomen pelvis was not ordered. Patient does have evidence of external hemorrhoids on exam. I discussed blood transfusion with the patient, she is in agreement. Patient was ordered 1 unit packed red blood cells. Patient consented to blood transfusion, will plan for admission to the hospitalist service for further management and GI consultation. Patient and her are in agreement to this plan. [facility] hospitalist service was consulted for admission and the patient was placed for admission in stable condition. Consultants/Discussions held with other healthcare providers: -Hospitalist service, Dr. Cisneros Disposition discussion held by myself with: -Patient Diagnosis: 1. Symptomatic anemia, acute 2. Lower GI bleed, acute Disposition: Admission Robbie Artis DO Emergency Medicine Past Med/Surg History Medical History (Updated 08/10/23 @ 01:52 by Robbie Artis DO) Sensorineural hearing loss (SNHL) of left ear with restricted hearing of right ear Invasive ductal carcinoma of breast Nephrolithiasis Retinal detachment Attention deficit disorder (ADD) Rectal bleeding Rheumatoid arthritis REASON FOR CHRONIC STEROID USE GERD (gastroesophageal reflux disease) Cancer BREAST, CHEMO 10/2017 - 03/05/18 AND THEN WILL CONTINUE TARGET THERAPY notes she had some minimal genetic testing which was negative Hypothyroidism Anemia Anxiety Migraine Surgical History Hx of breast biopsy History of vascular access device POWERPORT Hx of bilateral mastectomy WITH RECONSTRUCTION (04/23/2018) for breast cancer chemo Hx of hemorrhoidectomy x2 History of surgery on arm right WRIST TENDON REPAIR cesar 2016 History of colonoscopy 2019 History of esophagogastroduodenoscopy (EGD) History of tooth extraction WTE History of adenoidectomy History of tonsillectomy Family History Father Obesity Arthritis Mother Bronchiectasis Depression Migraine headache Grandmother (Maternal) Alzheimer disease Breast cancer Diabetes Ovarian cancer Uncle Diabetes paternal Grandfather (Paternal) Diabetes Other Cancer Lung disease Denies family history of Colorectal cancer Colonic polyp Social History (Updated 03/02/23 @ 08:24 by Ava Shipman LPN) Smoking Status: Never smoker Age Started Using Tobacco: 16; Age Quit Using Tobacco: 32; packs per day: 0.25; Second Hand Exposure: No; Do You Dip or Chew Tobacco: No; Hx Alcohol Use: Yes Alcohol type: beer Alcohol Intake Frequency: Monthly or Less Hx Substance Use: No Preferred Language: Serbian Communication Ability: Effective Visual Impairment: No Limitations Hearing Ability: Use of Hearing Aid Cub Reporter Required: No Beliefs That Will Affect Care: None marital status: Current Living Situation: Spouse Current Living Situation Comment: current occupational status: employed current occupation: [employer] Feels Safe at Home: Yes Diet: regular caffeine: Yes Dental Care, Regularly: Yes Physical Activity Frequency: Does not Exercise Seatbelt Use: always Assistive Devices: Glasses and Hearing Aid - Bilateral Allergies Allergies Allergy/AdvReac Type Severity Reaction Status Date / Time amoxicillin Allergy Unknown RASH, ITCHY Verified 03/02/23 08:16 cat dander Allergy Unknown EYE Verified 03/02/23 08:16 ITCHINESS AND WATERY Penicillins Allergy Unknown RASH AND Verified 03/02/23 08:16 ITCHY Home Meds Home Medications Medication Instructions Recorded Confirmed meloxicam 7.5 mg tablet 7.5 mg PO PM ##0 06/16/16 08/09/23 levonorgestrel 21 mcg/24 hours (8 1 device intrauterine ONCE ##0 11/09/17 08/09/23 yrs) 52 mg intrauterine device (Mirena) biotin 5 mg tablet 1 tab PO QAM 04/19/18 08/09/23 Lactobacillus acidophilus 10 10,000,000 cell PO QAM 01/04/19 08/09/23 billion cell capsule (Probiotic) dextroamphetamine-amphetamine 20 20 mg PO QAM 01/04/19 08/09/23 mg tablet (Adderall) docusate sodium 100 mg capsule 200 mg PO BID 03/02/19 08/09/23 methylprednisolone 4 mg tablet 4 - 8 mg PO DAILY PRN rheumatoid 09/05/22 08/09/23 flares turmeric 400 mg capsule 400 mg PO BID 09/05/22 08/09/23 abatacept 125 mg/mL subcutaneous 125 mg subcut .weekly 09/06/22 08/09/23 syringe (Orencia) cholecalciferol (vitamin D3) 25 25 mcg PO BID 03/03/23 08/09/23 mcg (1,000 unit) capsule gabapentin 100 mg capsule 100 - 200 mg PO DAILY PRN hot 08/09/23 08/09/23 flashes levothyroxine 100 mcg tablet 100 mcg PO DAILYBB 08/09/23 08/09/23 pantoprazole 40 mg tablet,delayed 40 mg PO QAM 08/09/23 08/09/23 release (Protonix) Previous Rx's Medication Instructions Recorded potassium chloride 20 mEq 20 meq PO BID #180 tabs 09/05/22 tablet,extended release sumatriptan succinate 100 mg tablet 100 mg PO .COMPLEX PRN migraine 09/05/22 headache 30 days #9 tabs nortriptyline 10 mg capsule 10 mg PO HS #30 caps 09/26/22 Results & Data (ED) Vital Signs Vital Signs - 24 hr 08/09/23 20:01 08/09/23 20:07 08/09/23 20:07 Temperature 36.5 C Temperature Source Temporal Artery Scan Pulse Rate - Lying 80 Pulse Rate - Sitting 96 H Pulse Rate - Standing 91 H Pulse Rate 93 H Respiratory Rate 17 Respiratory Effort / Characteristics Non-Labored Spontaneous Respiratory Depth Normal Respiratory Pattern Regular Blood Pressure - Lying 102/66 Blood Pressure - Sitting 130/91 Blood Pressure- Standing 130/84 Blood Pressure 110/74 Blood Pressure [Right Arm] Blood Pressure Mean 86 Blood Pressure Mean [Right Arm] Pulse Oximetry 100 97 Oxygen Delivery Method Room Air Room Air Sepsis Recent Fever Within 48 Hours No Sepsis New/Unexplained Change in Mental Status N/A Sepsis Action Taken by Nursing No Action Required 08/09/23 23:12 08/09/23 23:15 08/09/23 23:15 Temperature 36.6 C Temperature Source Oral Pulse Rate - Lying Pulse Rate - Sitting Pulse Rate - Standing Pulse Rate 81 80 Respiratory Rate 20 Respiratory Effort / Characteristics Respiratory Depth Respiratory Pattern Blood Pressure - Lying Blood Pressure - Sitting Blood Pressure- Standing Blood Pressure 130/84 Blood Pressure [Right Arm] 100/62 Blood Pressure Mean 99 Blood Pressure Mean [Right Arm] 74 Pulse Oximetry 99 Oxygen Delivery Method Sepsis Recent Fever Within 48 Hours Sepsis New/Unexplained Change in Mental Status Sepsis Action Taken by Nursing 08/09/23 23:29 08/09/23 23:44 08/10/23 00:14 Temperature 36.5 C 36.4 C L 36.5 C Temperature Source Oral Oral Oral Pulse Rate - Lying Pulse Rate - Sitting Pulse Rate - Standing Pulse Rate 78 78 72 Respiratory Rate 20 16 16 Respiratory Effort / Characteristics Respiratory Depth Respiratory Pattern Blood Pressure - Lying Blood Pressure - Sitting Blood Pressure- Standing Blood Pressure 93/60 L 93/60 L 111/67 Blood Pressure [Right Arm] Blood Pressure Mean 71 71 81 Blood Pressure Mean [Right Arm] Pulse Oximetry 97 96 98 Oxygen Delivery Method Sepsis Recent Fever Within 48 Hours Sepsis New/Unexplained Change in Mental Status Sepsis Action Taken by Nursing 08/10/23 01:14 Temperature 36.8 C Temperature Source Oral Pulse Rate - Lying Pulse Rate - Sitting Pulse Rate - Standing Pulse Rate 70 Respiratory Rate 16 Respiratory Effort / Characteristics Respiratory Depth Respiratory Pattern Blood Pressure - Lying Blood Pressure - Sitting Blood Pressure- Standing Blood Pressure 92/70 L Blood Pressure [Right Arm] Blood Pressure Mean 77 Blood Pressure Mean [Right Arm] Pulse Oximetry 97 Oxygen Delivery Method Sepsis Recent Fever Within 48 Hours Sepsis New/Unexplained Change in Mental Status Sepsis Action Taken by Nursing Laboratory Data 08/09/23 20:28 08/09/23 20:28 Lab Results 08/09/23 08/09/23 Range/Units 20:28 20:30 WBC 4.59 L (4.8-10.8) K/ul RBC 2.87 L (4.20-5.40) M/uL Hgb 8.0 L (12.0-16.0) g/dl Hct 25.2 L (37.0-47.0) % MCV 87.8 (80.0-100.0) fL MCH 27.9 (25.0-34.0) pg MCHC 31.7 L (32.0-36.0) g/dL RDW Std Deviation 41.2 (36.4-46.3) fL RDW Coeff of Kristine 12.9 (11.5-14.5) % Plt Count 491 H (130-400) K/uL MPV 9.2 L (9.4-12.4) fL PT 11.1 (9.0-12.0) Seconds INR 1.0 (0.9-1.1) APTT 25 (21-31) Seconds PTT Ratio 0.9 Sodium 139 (136-145) mmol/L Potassium 3.7 (3.5-5.1) mmol/L Chloride 106 (98-107) mmol/L Carbon Dioxide 28 (21-32) mmol/L Anion Gap 5 (3-11) BUN 13 (6-23) mg/dl Creatinine 0.86 (0.6-1.2) mg/dl Est Cr Clr Drug Dosing 76.9 ml/min Est GFR ( Amer) 91.9 ml/min Est GFR (Non-Af Amer) 79.3 ml/min BUN/Creatinine Ratio 15.1 (10-20) Glucose 123 H (70-99(Fasting)) mg/dl Calcium 9.0 (8.6-10.3) mg/dl Total Bilirubin 0.2 (0.2-1.0) mg/dl AST 15 (13-39) U/L ALT 8 (7-52) U/L Alkaline Phosphatase 57 (34-104) U/L Troponin I High Sens < 2.3 (0-14) pg/ml Total Protein 6.4 (6.0-8.3) gm/dl Albumin 4.0 (3.4-5.0) gm/dl Globulin 2.4 L (2.5-4.0) gm/dl Albumin/Globulin Ratio 1.7 (0.9-2) Blood Type A Positive Antibody Screen NEGATIVE Crossmatch See Detail Discharge Plan Visit Data Chief Complaint: Rectal Bleed Stated Complaint: RECTAL BLEEDING, BLOOD LEVELS ABNORMAL ED Provider: Robbie Artis Discharge Problem: Acute lower GI bleeding Forms Stand Alone Forms: [facility] Prescriptions Prescriptions: No Action meloxicam 7.5 mg Tablet 7.5 mg PO PM Qty: 0 Mirena 20 mcg/24 hr (5 years) Intrauterine Device 1 device intrauterine ONCE Qty: 0 methylprednisolone 4 mg tablet 4 - 8 mg PO DAILY PRN (Reason: rheumatoid flares) Orencia 125 mg/mL syringe 125 mg subcut .weekly Rx Instructions: fridays nortriptyline 10 mg capsule 10 mg PO HS Qty: 30 11RF sumatriptan succinate 100 mg tablet 100 mg PO .COMPLEX PRN (Reason: migraine headache) 30 Days Qty: 9 3RF Rx Instructions: take 1 tab at onset of headache, may repeat in 2 hrs prn, Limit 2-3 days/week turmeric 400 mg capsule 400 mg PO BID potassium chloride 20 mEq tablet extended release 20 meq PO BID Qty: 180 3RF cholecalciferol (vitamin D3) 25 mcg (1,000 unit) capsule 25 mcg PO BID docusate sodium 100 mg capsule 200 mg PO BID biotin 5 mg Tablet 1 tab PO QAM dextroamphetamine-amphetamine [Adderall] 20 mg tablet 20 mg PO QAM Probiotic 10 billion cell Capsule 10,000,000 cell PO QAM levothyroxine 100 mcg tablet 100 mcg PO DAILYBB pantoprazole [Protonix] 40 mg tablet,delayed release (DR/EC) 40 mg PO QAM gabapentin 100 mg capsule 100 - 200 mg PO DAILY PRN (Reason: hot flashes) Referrals Referrals: Anand Sepulveda MD [Primary Care Provider] -
--- NOTE | 2023-08-09 23:40 | History & Physical Report ---
Date of Service August 09, 2023 Assessment & Plan (1) Lower GI bleed: Plan: Pt is a 47 yo female with PMH of RA (on chronic steroids), GERD, breast cancer (2018) s/p chemo and mastectomy, anxiety, hypothyroidism, and migraine presenting d/t low Hgb on outpatient labs. Lower GI bleed w/ blood loss anemia - recurrent hemorrhoids vs. GI polyp bleed vs. ? - pt is s/p 2 hemorrhoid surgeries in the past - last iron infusion 07/21/2023; receives these monthly - last colonoscopy 12/2022 showed 4 mm polyp in sigmoid colon which was removed; also showed internal hemorrhoids in addition to diverticula - Hgb 8.0 upon admission and pt symptomatic; s/p 1 unit pRBCs in the ER - recheck Hgb after transfusion/with AM labs - GI consulted for possibility of colonoscopy RA - hold home meds while NPO - may use IV tylenol PRN Migraine - IV tylenol PRN as above Hypothyroidism - hold home meds while NPO ADD - hold home meds while NPO Diet: NPO VTE ppx: deferred in setting of active bleed Code: full Dispo: admit to med/tele (2) Migraine without aura, not intractable, without status migrainosus: (3) Hypothyroidism: (4) Rheumatoid arthritis: History of Present Illness Chief Complaint: lower GI bleed Primary Care Provider: Anand Sepulveda MD Pt is a 47 yo female with PMH of RA (on chronic steroids), GERD, breast cancer (2018) s/p chemo and bilateral mastectomy, anxiety, hypothyroidism, and migraine presenting d/t low Hgb on outpatient labs. Pt explains that her bleeding started in June. She has had bleeding hemorrhoids in the past and has had 2 surgeries to fix them. She has not been straining to defecate. She notes that the bleeding occurs daily with bowel movements but the bleeding can last for awhile after her BM so that she needs to wear a pad in her underwear. She describes the bleeding as large bright red clumps that look like "chewed gum." Over the last 1-2 weeks, she has become symptomatic in terms of feeling "not as sharp at work," lightheaded, and fatigued. She was seen by her PCP two days ago who recommended that she come to the ER but she did not want to. She had outpatient labs done that showed Hgb 7.9. She denies anal sex or any trauma to her rectum/anus. She had a colonoscopy done last year. She does have a hx of RA and she notes that when she is bleeding it seems that her RA flares get worse. She had multi-joint pain last week for which she was taking steroids. She took the steroids for 5 days and did a taper of 1 tablet each day starting with 5 tablets (20 mg methylprednisolone). She also takes a nightly meloxicam 7.5mg. She does not use other NSAIDs aside from the occasional (< weekly) Excedrin migraine. In the ER, she was hemodynamically stable with borderline low BP (90s/60s) which she says is normal for her. She was transfused 1u pRBCs. Allergies Allergy/AdvReac Type Severity Reaction Status Date / Time amoxicillin Allergy Unknown RASH, ITCHY Verified 03/02/23 08:16 cat dander Allergy Unknown EYE Verified 03/02/23 08:16 ITCHINESS AND WATERY Penicillins Allergy Unknown RASH AND Verified 03/02/23 08:16 ITCHY Home Medications Medication Instructions Recorded Confirmed Type meloxicam 7.5 mg tablet 7.5 mg PO PM ##0 06/16/16 08/09/23 History levonorgestrel 21 mcg/24 hours (8 1 device intrauterine ONCE ##0 11/09/17 08/09/23 History yrs) 52 mg intrauterine device (Mirena) biotin 5 mg tablet 1 tab PO QAM 04/19/18 08/09/23 History Lactobacillus acidophilus 10 10,000,000 cell PO QAM 01/04/19 08/09/23 History billion cell capsule (Probiotic) dextroamphetamine-amphetamine 20 20 mg PO QAM 01/04/19 08/09/23 History mg tablet (Adderall) docusate sodium 100 mg capsule 200 mg PO BID 03/02/19 08/09/23 History methylprednisolone 4 mg tablet 4 - 8 mg PO DAILY PRN rheumatoid 09/05/22 08/09/23 History flares potassium chloride 20 mEq 20 meq PO BID #180 tabs 09/05/22 08/09/23 Rx tablet,extended release sumatriptan succinate 100 mg tablet 100 mg PO .COMPLEX PRN migraine 09/05/22 08/09/23 Rx headache 30 days #9 tabs turmeric 400 mg capsule 400 mg PO BID 09/05/22 08/09/23 History abatacept 125 mg/mL subcutaneous 125 mg subcut .weekly 09/06/22 08/09/23 History syringe (Orencia) nortriptyline 10 mg capsule 10 mg PO HS #30 caps 09/26/22 08/09/23 Rx cholecalciferol (vitamin D3) 25 25 mcg PO BID 03/03/23 08/09/23 History mcg (1,000 unit) capsule gabapentin 100 mg capsule 100 - 200 mg PO DAILY PRN hot 08/09/23 08/09/23 History flashes levothyroxine 100 mcg tablet 100 mcg PO DAILYBB 08/09/23 08/09/23 History pantoprazole 40 mg tablet,delayed 40 mg PO QAM 08/09/23 08/09/23 History release (Protonix) Past Med/Surg History Medical History Sensorineural hearing loss (SNHL) of left ear with restricted hearing of right ear Invasive ductal carcinoma of breast Nephrolithiasis Retinal detachment Attention deficit disorder (ADD) Rectal bleeding Rheumatoid arthritis REASON FOR CHRONIC STEROID USE GERD (gastroesophageal reflux disease) Cancer BREAST, CHEMO 10/2017 - 03/05/18 AND THEN WILL CONTINUE TARGET THERAPY notes she had some minimal genetic testing which was negative Hypothyroidism Anemia Anxiety Migraine Surgical History Hx of breast biopsy History of vascular access device POWERPORT Hx of bilateral mastectomy WITH RECONSTRUCTION (04/23/2018) for breast cancer chemo Hx of hemorrhoidectomy x2 History of surgery on arm right WRIST TENDON REPAIR cesar 2016 History of colonoscopy 2019 History of esophagogastroduodenoscopy (EGD) History of tooth extraction WTE History of adenoidectomy History of tonsillectomy Family History Father Obesity Arthritis Mother Bronchiectasis Depression Migraine headache Grandmother (Maternal) Alzheimer disease Breast cancer Diabetes Ovarian cancer Uncle Diabetes paternal Grandfather (Paternal) Diabetes Other Cancer Lung disease Denies family history of Colorectal cancer Colonic polyp Social History Smoking Status: Never smoker Age Started Using Tobacco: 16; Age Quit Using Tobacco: 32; packs per day: 0.25; Second Hand Exposure: No; Do You Dip or Chew Tobacco: No; Hx Alcohol Use: No Hx Substance Use: No Preferred Language: Senegalese Communication Ability: Effective Visual Impairment: No Limitations Hearing Ability: Use of Hearing Aid Photogrammetric Surveyor Required: No Beliefs That Will Affect Care: None marital status: Current Living Situation: Spouse Current Living Situation Comment: current occupational status: employed current occupation: [employer] Feels Safe at Home: Yes Diet: regular caffeine: Yes Dental Care, Regularly: Yes Physical Activity Frequency: Does not Exercise Seatbelt Use: always Assistive Devices: None Review of Systems Review of Systems: As per HPI Physical Exam Physical Exam: Constitutional: well appearing, no acute distress HEENT: normocephalic, no conjunctival injection CV: RRR, no murmur, no LE edema Respiratory: CTA bilaterally. No rhonchi, wheezes, or crackles. No increased work of breathing GI: soft, nondistended, nontender, + bowel sounds MSK: no gross deformities noted Skin: warm, dry, no rashes Neuro: alert, oriented, no FND noted Psych: mood and affect congruent Results & Data Results & Data Vital Signs (Past 12 Hours) Vital Signs Temp Pulse Resp BP BP Pulse Ox O2 Del Method 08/09/23 23:29 36.5 C 78 20 93/60 L 97 08/09/23 23:15 100/62 08/09/23 23:15 80 08/09/23 23:12 36.6 C 81 20 130/84 99 08/09/23 20:07 97 Room Air 08/09/23 20:01 36.5 C 93 H 17 110/74 100 Room Air Supervising Physician Co-Signing Physician Notes Attending addendum: I have physically seen this patient, have supervised the medical residents activities, and agree with the H&P unless as otherwise noted. Assessment and Plan: Symptomatic anemia/lower GI bleed- History of 2 hemorrhoid surgeries in the past Bright red blood per rectum noted To receive 1 unit PRBCs from the ED Follow H&H's serially Pantoprazole 40 mg IV daily Most recent colonoscopy 01/06 with 4 mm sigmoid colon polyp that was removed. At that time internal hemorrhoids were noted as well along with diverticula Differential including but not limited to recurrent hemorrhoids, diverticular bleeding, AVMs, others Rheumatoid arthritis- On abatacept subcu weekly Hold meloxicam Medications for hypothyroidism, ADD on hold Remaining orders and notations as noted Resident Activity Tracking Resident Involvement: Resident Care Provided Care Provided: Adult Hospital Medicine
[2023-08-10] MEDS ORDERED: ACETAMINOPHEN 325 MG TAB PO PRN (00:25)
[2023-08-10] MEDS ORDERED: ACETAMINOPHEN 1,000 MG/100 ML VIAL IV PRN (00:25)
[2023-08-10] MEDS ORDERED: ONDANSETRON INJ 2 MG/ML 2 ML VIAL IV PRN (00:25)
[2023-08-10 01:55] VITALS: TEMP 98.2
[2023-08-10] MEDS ORDERED: LEVONORGESTREL (MIRENA) IUD PV SCH (03:15)
--- OUTSIDE RECORDS SUMMARY | 2023-08-10 03:26 | External Medical Summary | Summary of Care ---
Author Name Unknown Organization [facility] Address [address] [facility] [place] [place] [address] Phone [phone] Care Team Providers Care Machinist Class B Name Role Phone Anand Sepulveda MD Primary Care Provi rose Reason for Visit * Reason Comments Rheum Follow Up Follow up - RA Encounter Details Date Type Department Care Team (Late st Contact Info) Description 08/09/2023 9:20 AM EST Office Visit Rheumatology [address] [place] [address] John Ryan MD [address] [place] [address] [place] [address] Rheumatoid arthritis of multiple sites without rheumatoid factor (HCC)*; Encounter for long-term (current) use of medications Allergies Active Allergy Reactions Criticality Noted Date Comments Cat Dander 03/08/2022 Other Reaction(s): EYE ITCHINESS AND WATERY Penicillins Rash 02/20/2008 Feet/legs documented as of this encounter (statuses as of 08/09/2023) Medications Medication Sig Dispensed Refills Start Date End Date Status DOCUSATE SODIUM 50 MG PO CAPS 4 tabs a day 0 Active amphetamine-dextroa mphet ER (ADDERALL XR) 20 MG CP24 Take 1 Capsule by mouth in the morning. Every morning.. 0 01/17/2015 Active Probiotic Product ([facility] ADV PROBIOTIC GUMMIES) CHEW Take by mouth. 0 Active Biotin 1 MG Capsule Take 1 Capsule by mouth in the morning. 0 Active nortriptyline (PAMELOR) 10 MG Capsule Take 1 Capsule by mouth at bedtime. 0 Active Turmeric 500 MG Oral Capsule Take 1 Capsule by mouth in the morning. 0 Active SUMAtriptan Succinate 100 MG Oral Tablet Take 1 Tablet by mouth every 2 hours as needed for Migraine. 0 Active Iron Sucrose 20 MG/ML Intravenous Solution Administer 200 mg intravenously once. 0 Active Folic Acid 1 MG Oral Tablet Take by mouth 1 Tablet in the morning. 90 Tablet 4 04/12/2022 Active Additional Information Patient not taking.Reported on 08/09/2023 Levothyroxine Sodium 100 MCG Oral Tablet (Levoxyl) 0 05/30/2022 Active Ondansetron HCl 8 MG Oral Tablet (Zofran) 0 05/30/2022 Active Pantoprazole Sodium 40 MG Oral Tablet Delayed Release (Protonix) 0 09/27/2022 Active Potassium Chloride ER 20 MEQ Oral Tablet Extended Release 0 09/05/2022 Active Meloxicam 7.5 MG Oral Tablet (Mobic)Indications: Rheumatoid arthritis of multiple sites without rheumatoid factor (HCC) TAKE ONE TABLET BY MOUTH ONE TIME DAILY WITH FOOD OR DRINK 90 Tablet 2 03/24/2023 Active methylPREDNISolone 4 MG Oral Tablet (Medrol)Indications :Rheumatoid arthritis of multiple sites without rheumatoid factor (HCC) TAKE 1 TO 2 TABLETS BY MOUTH EVERY DAY NEEDED FOR ARTHRITIS 60 Tablet 0 06/01/2023 Active Orencia ClickJect 125 MG/ML Subcutaneous Solution Auto-injector (Abatacept) INJECT 125 MG UNDER THE SKIN ONCE A WEEK. 4 mL 5 06/27/2023 Active Cholecalciferol 25 MCG (1000 UT) Oral Capsule daily. 0 03/03/2023 Active Gabapentin 100 MG Oral Capsule (Neurontin) 0 08/06/2023 Active documented as of this encounter (statuses as of 08/09/2023) Active Problems Problem Noted Date Diagnosed Date History of 2019 novel coronavirus disease (COVID -19) 09/01/2020 Rheumatoid arthritis of mult iple sites without rheumatoid factor 01/11/2016 Encounter for long-term (current) use of medicat ions 06/04/2015 Sensorineural hearing loss, bilateral 09/12/2006 Overview: Dr. Clarke Hypothyroidism Allergic rhinitis Invasive ductal carcinoma of breast Overview: left breast documented as of this encounter (statuses as of 08/09/2023) Resolved Problems Problem Noted Date Diagnosed Date Resolved Date COVID-19 virus infection 11/21/2019 Rheumatoid arthritis 016 documented as of this encounter (statuses as of 08/09/2023) Immunizations Name Administration Dates Next Due COVID-19 mRNA, LNP-s, No Pre serve, 2-Dose Series (Moderna) 04/20/2021,10/06/2020,09/08/2020 COVID-19, mRNA, LNP-s, PF, B ooster, 100mcg/0.5mg (Moderna) 11/16/2021 Pneumococcal Polysaccharide PPV23 (Pneumovax) 05/16/2014 Seasonal Influenza, PF, 6 M & above, IM , (FluLaval or Fluzone) 04/30/2021 Seasonal Influenza, Split, I IV3, With Preserve, Inj 04/26/2022,05/21/2020,04/26/2019,04/16,05/17/2016,05/17/2014 documented as of this encounter Social History Tobacco Use Types Packs/Day Years Used Date Smoking Tobacco: Former Cigarettes 0 03/06/1993 - 07/17/2008 Smokeless Tobacco: Never Tobacco Cessation:Counseling Given: Not Answered Alcohol Use Standard Drinks/Week Comments Yes 0 (1 standard drink = 0.6 oz pur e alcohol) 4 beers per month Sex and Gender Information Value Date Recorded Sex Assigned at Female 04/30/2023 7:28 PM EDT Gender Identity Female 04/30/2023 7:28 PM EDT Sexual Orientation Straight 04/30/2023 7: 28 PM EDT Job Start Date Occupation Industry Not on file Not on file Not on file documented as of this encounter Last Filed Vital Signs Vital Sign Reading Time Taken Comments Blood Pressure - - Pulse - - Temperature 36.9 C (98.4 F) 08/09/2023 9:26 AM ES T Respiratory Rate - - Oxygen Saturation - - Inhaled Oxygen Concentration - - Weight 69.4 kg (153 lb) 08/09/2023 9:26 AM EST Height - - Body Mass Index 23.96 01/06/2023 12:53 PM EDT documented in this encounter Progress Notes * John Ryan MD - 08/09/2023 9:26 AM EST Images from the original note were not included. Assessment and Plan Rheumatoid arthritis of multiple sites without rheumatoid factor (HCC) Encounter for long-term (current) use of medications She has some mild ongoing activity of the right thumb and right wrist unfortunately given her chronic anemia have been avoiding adding back methotrexate leflunomide. Will continue with Orencia. Will be getting a blood transfusion and follows closely with Hematology/Oncology for her iron deficiency anemia. Return to clinic with me in 6 months Rheumatology Synopsis: [facility] RA SYNOPSIS Date of RA Diagnosis: 05/17/12 (08/09/2023 9:00 AM) Current Treatment: ABT (08/09/2023 9:00 AM) Previous Treatment: MTX; LEF; ETA; ADA; UPA; SSZ (08/09/2023 9:00 AM) 2009 Classification Criteria: Y (08/09/2023 9:00 AM) Seropositive or seronegative: Seropositive (08/09/2023 9:00 AM) RF and/or CCP: CCP+ (08/09/2023 9:00 AM) Disease activity: Stable Patient History History of Present Illness HPI:47 year old female presented to rheumatology clinic for Rheum Follow Up (Follow up - RA) She is feeling fatigued. She did have labs and her hgb was 7.9. already discussed with PCP about getting PRBCs/ was supposed to get it today but had this appt. So came here. ROS: Review of Systems was asked and the following other significant symptoms are present: fatigue, headaches, weak muscles Rheumatology History Subjective Patient's past history, medications, and allergies were reviewed. Objective Physical Exam Temp 36.9 C (98.4 F) (Infrared ) | Wt 69.4 kg (153 lb) | BMI 23.96 kg/m | BSA 1.81 m Constitutional: no acute distress HEENT: normal: normocephalic, atraumatic; no masses, tenderness, or adenopathy Eyes: PERRLA, sclera and conjunctiva normal Neck: supple, no adenopathy CV: normal rate and rhythm, no murmur, gallops or rub Chest: normal respiratory effort, lungs clear to auscultation and percussion Abdomen: normal: soft, bowel sounds normal, no masses, tenderness or organomegaly Musculoskeletal: Synovitis and tenderness of the right thumb MCP and right wrist. No other sites ofsynovitis or tenderness MSK/Joint exam (Homunculus) MSK Exam findings: Homunculus exam Studies: Labs and Imaging studies reviewed with pertinent findings noted below: Disease Treatment Response CDAI Scoring Patient Global: 80 mm Provider Global: 30 mm Tender (FAIR-28): 2 28 Swollen (FAIR-28): 2 CDAI: 15 CDAI (Clinical Disease Activity Index) [facility] Outcomes measures: Serial CDAI: Synopsis SmartLink 08/09/2023 09:20 CDAI CDAI 15 - Serial CDAI: - Yes - Remission: - No - low disease activity Currently on csDMARD: No Currently on Biologic DMARD: Yes Vaccination status: COVID: Vaccine and/or Health maintenance status Incomplete Influenza:Flu Vaccine pending for this season Pneumococcal:Vaccine and/or Health maintainance status Incomplete Zoster:Vaccine and/or Health Maintainance Incomplete Last Hepatitis and TB testing: Hepatitis B: Not Tested, results not available Hepatitis C: Not Tested, results not available PPD or TB-Gold: Tested, result reviewed No results found for: "HBSAG", "HEPB", "HCVAB" TB GOLD AG NIL Date/Time Value Ref Range Status 07/24/2015 08:52 AM <0.00 IU/mL Final Comment: (NOTE) The Nil tube value is used to determine if the patient has a preexisting immune response which could cause a false-positive reading on the test. In order for a test to be valid, the Nil tube must have a value of <=8.0 IU/mL. The Mitogen control tube is used to assure the patient has a healthy immune status and also serves as a control for correct blood handling and incubation. It is used to detect false-negative readings. The mitogen tube must have a gamma interferon value >= 0.5 IU/mL higher than the value of the Nil tube. The TB Antigen tube is coated with the M tuberculosis specific antigens. For a test to be considered positive the TB antigen tube value minus the Nil tube value must be >=0.35 IU/mL. Data on the performance of the test in children younger than 5 years of age are limited, and the CDC advises that caution is warranted when using the assay in children aged <5 years (MMWR 2010; 59 (RR-05):1-25). For additional information, please refer to: http://education.[employer].Tengion/faq/QFT TB GOLD MITOGEN NIL Date/Time Value Ref Range Status 07/24/2015 08:52 AM >10.00 IU/mL Final Wrap-Up Follow Up: Return in about 7 months (around 03/09/2024). documented in this encounter Nursing Notes * Tanesha Chambers LPN - 08/09/2023 9:24 AM EST Chief Complaint Patient presents with Rheum Follow Up Follow up - RA documented in this encounter Plan of Treatment Upcoming Encounters Date Type Department Care Team (Late st Contact Info) Description 03/14/2024 8:40 AM EDT Office Visit Rheumatology [address] [id number] [employer] [place] [address] John Ryan MD [address] [place] [address] Scheduled Procedures Name Priority Associated Diagnoses Date/Ti me COLONOSCOPY FLEXIBLE PROXIMA L DIAGNOSTIC Recall History of colonic polyps Health Maintenance Due Date Last Done Comments Hepatitis B (1 of 3 - 3-dose series) 1973 Lipid Panel 1973 Depression Screening 1985 HIV Screening 1988 Hepatitis C Screening 12/29/1991 DTaP,Tdap,and Td Vaccines (1 - Tdap) 1992 Pap Smear 1994 Cervical Cancer Screening 12/29/2003 HPV/Co-Test 12/29/2003 Mammogram 2013 Pneumococcal Vaccine: Pediatrics (0 to 5 Years) and At-Risk Patients (6 to 64 Years) (3 - PPSV23 or PCV20) 03/09/2021 03/09/2020, 05/16/2014 TSH 09/24/2022 09/24/2021, 07/11/2019 COVID-19 Vaccine (5 - 2022- season) 2023 11/16/2021, 04/20/2021, 10/06/2020, Additional history exists Influenza Vaccine (FLU shot) (#1) 2023 04/26/2022, 04/30/2021, 05/21/2020, Additional history exists COLONOSCOPY-EVERY 5 YRS AGES 18-100 01/07/2028 01/06/2023, 01/06/2023, 03/05/2020, Additional history exists Colonoscopy Discontinued 01/06/2023, 12/16, 03/05/2020, Additional history exists Colorectal Cancer Screening Discontinued Cologuard Discontinued Fecal Occult Blood Test Discontinued GARDASIL-HPV IMMUNIZATION SERIES Aged Out No longer eligible based on patient's age to complete this topic MENINGOCOCCAL (MENACTRA/MENVEO) Aged Out No longer eligible based on patient's age to complete this topic Sigmoidoscopy Discontinued documented as of this encounter Medical Devices Not on filedocumented as of this encounter Visit Diagnoses Diagnosis Rheumatoid arthritis of multiple sites without rheumatoid factor (HCC)- Primary Rheumatoid arthritis Encounter for long-term (current) use of medications Encounter for long-term (current) use of other medications documented in this encounter Care Teams Machinist Class B Relationship Specialty Start Date End Date Anand Sepulveda MD [address] [place] [address] [place] [address] PCP - General Internal Medicine 06/19/14 documented as of this encounter
--- NOTE | 2023-08-10 09:02 | Gastrointestinal Consultation ---
Date of Consultation August 10, 2023 Assessment & Plan (1) Acute lower GI bleeding: (2) Iron deficiency anemia: Pt is a 47 yo female w hx of breast ca s/p chemo and bilateral mastectomy, RA on steroids, iron deficiency anemia who presented w worsening anemia w increased rectal bleeding. Abd exam benign. Rectal exam showed ext hemorrhoids w ? rectal prolapse, no fissure or stigmata or bleeding. Internal exam wo mass nor bleeding noted. - Monitor blood ct and transfuse prn - CL diet - Tagged RBC study vs CTA if continues to bleed - Avoid straining or constipation by using daily bowel regimen such as Miralax 17g bid or Miralax 17g daily + Colace 200mg daily; add Fiber daily - Consider Surgery eval for hemorrhoidectomy - OP colonoscopy in 4-6 week's time Supervising Physician Co-Signing Physician Notes I saw and evaluated the patient. We were consulted for evaluation of intermittent hematochezia. Of note the patient has had symptoms ongoing for over a month she describes having formed bowel movements with red blood in the toilet water is filling the bowl. She did have a prior colonoscopy with one of my partners notable for hemorrhoids, mild diverticulosis in addition to a small polyp. The patient denies having fevers chills or sweats. Impression: Patient with intermittent hematochezia, given the chronicity of her symptoms with suspected anal rectal etiology such as her hemorrhoids. Given the profound nature of her symptoms we will make arrangements for outpatient colonoscopy within the next 4 to 6 weeks with her normal GI provider. With regard to treatment we would recommend beginning a bowel regimen with fiber supplement 1 time daily, increase water intake, MiraLAX 17 g daily and Colace 200 mg/day. Please call with any additional questions or concerns GI to sign off History of Present Illness Reason for Consultation: Rectal bleeding Requesting Physician: Dr. Sameer Alcaraz Attending Physician: Dr. Maryana Arroyo History of Present Illness Pt is a 47 yo female w RA on chronic steroids, GERD, breast ca s/p chemo and bilateral mastectomy, anxiety, hypothyroidism, and migraines who was referred to ED due to anemia on outpt labs. Her outpt Hgb yesterday was 7.9, previously normal in April. She was given 1U PRBC transfusion overnight w good response of blood ct. She had 2 prior hemorrhoids surgery last done in 2012 and since then she's had intermittent rectal bleeding. Has chronic anemia and been receiving iron infusion, last one being on 07/21/2023. She recently noticed increased rectal bleeding on daily basis w large blood clots. She denies assoc iated abd pain, n/v but noticed BLACKWELL and light headedness. She denies feeling constipated. Denies hx of abd surgery. Takes steroids for RA flare, w occasional NSAIDs use. Denies family hx of colorectal ca EGD 2022: Normal exam, duodenal bx w non specific intraepethilial lymphocytes and reactive changes. TTG IgA Ab 2022 normal. Colonoscopy 2022: Tubular adenoma polyp, diverticulosis on sigmoid colon, int hemorrhoids VCE 2020 : normal Allergies Allergy/AdvReac Type Severity Reaction Status Date / Time amoxicillin Allergy Unknown RASH, ITCHY Verified 03/02/23 08:16 cat dander Allergy Unknown EYE Verified 03/02/23 08:16 ITCHINESS AND WATERY Penicillins Allergy Unknown RASH AND Verified 03/02/23 08:16 ITCHY Home Medications Medication Instructions Recorded Confirmed Type meloxicam 7.5 mg tablet 7.5 mg PO PM ##0 06/16/16 08/09/23 History levonorgestrel 21 mcg/24 hours (8 1 device intrauterine ONCE ##0 11/09/17 08/09/23 History yrs) 52 mg intrauterine device (Mirena) biotin 5 mg tablet 1 tab PO QAM 04/19/18 08/09/23 History Lactobacillus acidophilus 10 10,000,000 cell PO QAM 01/04/19 08/09/23 History billion cell capsule (Probiotic) dextroamphetamine-amphetamine 20 20 mg PO QAM 01/04/19 08/09/23 History mg tablet (Adderall) docusate sodium 100 mg capsule 200 mg PO BID 03/02/19 08/09/23 History methylprednisolone 4 mg tablet 4 - 8 mg PO DAILY PRN rheumatoid 09/05/22 08/09/23 History flares potassium chloride 20 mEq 20 meq PO BID #180 tabs 09/05/22 08/09/23 Rx tablet,extended release sumatriptan succinate 100 mg tablet 100 mg PO .COMPLEX PRN migraine 09/05/22 08/09/23 Rx headache 30 days #9 tabs turmeric 400 mg capsule 400 mg PO BID 09/05/22 08/09/23 History abatacept 125 mg/mL subcutaneous 125 mg subcut .weekly 09/06/22 08/09/23 History syringe (Orencia) nortriptyline 10 mg capsule 10 mg PO HS #30 caps 09/26/22 08/09/23 Rx cholecalciferol (vitamin D3) 25 25 mcg PO BID 03/03/23 08/09/23 History mcg (1,000 unit) capsule gabapentin 100 mg capsule 100 - 200 mg PO DAILY PRN hot 08/09/23 08/09/23 History flashes levothyroxine 100 mcg tablet 100 mcg PO DAILYBB 08/09/23 08/09/23 History pantoprazole 40 mg tablet,delayed 40 mg PO QAM 08/09/23 08/09/23 History release (Protonix) Patient History Medical History Sensorineural hearing loss (SNHL) of left ear with restricted hearing of right ear Invasive ductal carcinoma of breast Nephrolithiasis Retinal detachment Attention deficit disorder (ADD) Rectal bleeding Rheumatoid arthritis REASON FOR CHRONIC STEROID USE GERD (gastroesophageal reflux disease) Cancer BREAST, CHEMO 10/2017 - 03/05/18 AND THEN WILL CONTINUE [facility] notes she had some minimal genetic testing which was negative Hypothyroidism Anemia Anxiety Migraine Surgical History Hx of breast biopsy History of vascular access device POWERPORT Hx of bilateral mastectomy WITH RECONSTRUCTION (04/23/2018) for breast cancer chemo Hx of hemorrhoidectomy x2 History of surgery on arm right WRIST TENDON REPAIR cesar 2016 History of colonoscopy 2019 History of esophagogastroduodenoscopy (EGD) History of tooth extraction WTE History of adenoidectomy History of tonsillectomy Family History Father Obesity Arthritis Mother Bronchiectasis Depression Migraine headache Grandmother (Maternal) Alzheimer disease Breast cancer Diabetes Ovarian cancer Uncle Diabetes paternal Grandfather (Paternal) Diabetes Other Cancer Lung disease Denies family history of Colorectal cancer Colonic polyp Social History Smoking Status: Never smoker Age Started Using Tobacco: 16; Age Quit Using Tobacco: 32; packs per day: 0.25; Second Hand Exposure: No; Do You Dip or Chew Tobacco: No; Tobacco Cessation Education Requested by Patient: No Hx Alcohol Use: No Hx Substance Use: No Preferred Language: Greek Communication Ability: Effective Visual Impairment: No Limitations Hearing Ability: Use of Hearing Aid Paper Reel Operator Required: No Beliefs That Will Affect Care: None marital status: Current Living Situation: Spouse Current Living Situation Comment: current occupational status: employed current occupation: [employer] Other Information That Helps Us Care for You: No Feels Safe at Home: Yes Safety Concerns: Feels Safe At This Time Diet: regular caffeine: Yes Dental Care, Regularly: Yes Physical Activity Frequency: Does not Exercise Seatbelt Use: always Assistive Devices: None Review of Systems Review of Systems: All systems reviewed & are unremarkable except as noted in HPI & below Physical Exam Constitutional: WD/WN, vitals as above well groomed, cooperative and comfortable Eyes: PERRL, conjunctivae normal, anicteric sclerae ENMT: external ear and nose normal, oropharynx normal Respiratory: normal respiratory effort, lungs clear to auscultation Cardiovascular: RRR, no murmur, no edema Gastrointestinal (Abdomen): normal bowel sounds, soft, nontender, no hepatosplenomegaly Skin: no rashes, warm and dry no jaundice Psychiatric: A+Ox3, euthymic affect Lymphatic: no lymphedema Results & Data Vital Signs (Past 12 Hours) Vital Signs Temp Pulse Resp BP BP Pulse Ox 08/10/23 08:00 110/76 08/10/23 08:00 74 14 100 08/10/23 07:30 71 16 98 08/10/23 07:30 97/70 L 08/10/23 07:14 67 08/10/23 07:00 81 20 99/63 L 99 08/10/23 05:00 95 H 16 102/69 100 08/10/23 04:30 71 18 99/65 L 97 08/10/23 04:00 93 H 14 107/77 98 08/10/23 03:30 92 H 16 107/80 99 08/10/23 03:00 91 H 16 100/67 98 08/10/23 01:55 36.8 C 73 16 98/73 L 97 08/10/23 01:14 36.8 C 70 16 92/70 L 97 08/10/23 00:14 36.5 C 72 16 111/67 98 08/09/23 23:44 36.4 C L 78 16 93/60 L 96 08/09/23 23:29 36.5 C 78 20 93/60 L 97 08/09/23 23:15 100/62 08/09/23 23:15 80 08/09/23 23:12 36.6 C 81 20 130/84 99 (2) Iron deficiency anemia Iron deficiency anemia type: chronic blood loss Qualified Code(s): D50.0 - Iron deficiency anemia secondary to blood loss (chronic)
[2023-08-10] MEDS ORDERED: PANTOprazole 40 MG in SYRINGE 0 ML IV SCH (11:00)
[2023-08-10 13:50] VITALS: O2SAT 100
--- NOTE | 2023-08-10 17:21 | Discharge Summary ---
Date of Service August 10, 2023 Admission HPI Per Admitting Provider Pt is a 47 yo female with PMH of RA (on chronic steroids), GERD, breast cancer (2018) s/p chemo and bilateral mastectomy, anxiety, hypothyroidism, and migraine presenting d/t low Hgb on outpatient labs. Pt explains that her bleeding started in June. She has had bleeding hemorrhoids in the past and has had 2 surgeries to fix them. She has not been straining to defecate. She notes that the bleeding occurs daily with bowel movements but the bleeding can last for awhile after her BM so that she needs to wear a pad in her underwear. She describes the bleeding as large bright red clumps that look like "chewed gum." Over the last 1-2 weeks, she has become symptomatic in terms of feeling "not as sharp at work," lightheaded, and fatigued. She was seen by her PCP two days ago who recommended that she come to the ER but she did not want to. She had outpatient labs done that showed Hgb 7.9. She denies anal sex or any trauma to her rectum/anus. She had a colonoscopy done last year. She does have a hx of RA and she notes that when she is bleeding it seems that her RA flares get worse. She had multi-joint pain last week for which she was taking steroids. She took the steroids for 5 days and did a taper of 1 tablet each day starting with 5 tablets (20 mg methylprednisolone). She also takes a nightly meloxicam 7.5mg. She does not use other NSAIDs aside from the occasional (< weekly) Excedrin migraine. In the ER, she was hemodynamically stable with borderline low BP (90s/60s) which she says is normal for her. She was transfused 1u pRBCs. Principal Diagnosis lower GI bleeding (most likely hemorrhoidal) - subacute blood loss anemia (over ?time frame between late april and now) Discharge Exam aaox3 [place] nc at mmm breathing unlabored no accessory muscles good effort skin no rashes no pallor or icterus neuro no lateralizing signs Discharge Data Allergies Allergy/AdvReac Type Severity Reaction Status Date / Time amoxicillin Allergy Unknown RASH, ITCHY Verified 03/02/23 08:16 cat dander Allergy Unknown EYE Verified 03/02/23 08:16 ITCHINESS AND WATERY Penicillins Allergy Unknown RASH AND Verified 03/02/23 08:16 ITCHY Consultations 08/09/23 22:52 Consult Gastroenterology Routine ED Decision to Admit Stat Hospital Course (1) Lower GI bleed: presented with months of ongoing BRBPR - went to PCP - lightheaded/HR 100 - sent to ER for further eval; transfused 1 unit - felt much better. in discussion with pt re: options - home vs ongoing inpatient observation - she noted she would very much like to go home. reliable pt/aware of symptoms to watch for, willing to get CBC in office tomorrow (orders placed). GI evaluated her - felt bleeding most likely hemorrhoidal - after d/w pt will get her set up with surgery for outpt eval (ideally next week) -safe/stable for home -CBC tomorrow -return john if weak/lightheaded -surgery eval next week Total Time Total Time Spent Total Time Spent (In Minutes): <30 Discharge Plan Discharge Items Patient Disposition: Home - Self-Care Reason For Visit: ACUTE BLOOD LOSS ANEMIA Discharge Diagnosis: acute blood loss anemia - appears to be due to hemorrhoids Activity: Resume your previous activity Non-emergency contact: Primary Care Provider Call non-emergency contact if: you have any medication questions Follow-up/Referrals: Anand Sepulveda MD [Primary Care Provider] - Diet: Regular Ambulatory Orders: Complete Blood Count with Diff (Routine) Timeframe: 1 Day Location: Determined by Patient Ordered By: Sameer Dior Attending Provider Instructions: GI bleedingit does appear that you have had significant blood lossbut this has happened slowly between late April and now. It appears to be related to chronically bleeding hemorrhoids. Fortunately your vital signs are very stable and reassuring, and your blood counts are for all practical purposes the same today as they were yesterday. As we discussed, we could certainly watch you in the hospital into tomorrow, but with as stable as things are, your desire to go home is quite reasonable. The main thing I would ask is if you started to feel lightheaded or weak again (like you did that brought you here) you would immediately come back. Otherwise I would ask that you go to the office tomorrow to have repeat blood counts (CBC) checked, and we will ask our nurse navigator to work on getting you in with the general surgery office to have the hemorrhoids taken care of. Pending Studies at Discharge: No Stand-Alone Forms: My [facility] [employer], Smoking Cessation Medications and DC Order Prescriptions: Continued meloxicam 7.5 mg Tablet 7.5 mg PO PM Qty: 0 Mirena 20 mcg/24 hr (5 years) Intrauterine Device 1 device intrauterine ONCE Qty: 0 methylprednisolone 4 mg tablet 4 - 8 mg PO DAILY PRN (Reason: rheumatoid flares) Orencia 125 mg/mL syringe 125 mg subcut .weekly Rx Instructions: fridays nortriptyline 10 mg capsule 10 mg PO HS Qty: 30 11RF sumatriptan succinate 100 mg tablet 100 mg PO .COMPLEX PRN (Reason: migraine headache) 30 Days Qty: 9 3RF Rx Instructions: take 1 tab at onset of headache, may repeat in 2 hrs prn, Limit 2-3 days/week turmeric 400 mg capsule 400 mg PO BID potassium chloride 20 mEq tablet extended release 20 meq PO BID Qty: 180 3RF cholecalciferol (vitamin D3) 25 mcg (1,000 unit) capsule 25 mcg PO BID docusate sodium 100 mg capsule 200 mg PO BID biotin 5 mg Tablet 1 tab PO QAM dextroamphetamine-amphetamine [Adderall] 20 mg tablet 20 mg PO QAM Probiotic 10 billion cell Capsule 10,000,000 cell PO QAM levothyroxine 100 mcg tablet 100 mcg PO DAILYBB pantoprazole [Protonix] 40 mg tablet,delayed release (DR/EC) 40 mg PO QAM gabapentin 100 mg capsule 100 - 200 mg PO DAILY PRN (Reason: hot flashes) Discharge Orders: Discharge Order (Routine); Ordered 08/10/23 Ordered By: Sameer Alcaraz Admission Data Admit Date/Time: 08/10/23 00:25 Attending Provider: Sameer Alcaraz Admit Provider: Lashonda Gong Primary Care Provider: Anand Sepulveda Other Providers: Torito Cisneros; George Horner Coding Level of Care Code 94105 IN/OBS DISCH 30 MIN/LESS Diagnoses Lower GI bleed K92.2
[2023-08-10 17:48] VITALS: PULSE 72; RESP 16
[2023-08-10 18:13] VITALS: BP 100/62
--- NOTE | 2023-08-10 19:49 | Electrocardiogram Report ---
Test Reason : Blood Pressure : / mmHG Vent. Rate : 084 BPM Atrial Rate : 084 BPM P-R Int : 154 ms QRS Dur : 084 ms QT Int : 384 ms P-R-T Axes : 052 013 022 degrees QTc Int : 453 ms Normal sinus rhythm When compared with ECG of 15-MAR-2018 12:02, No significant change was found Confirmed by Anand Stahl ([id number] on 08/10/2023 7:48:58 PM Referred By: REFERRED SELF Confirmed By:Krishna Stahl
--- NOTE | 2023-08-11 06:14 | Billing Data ---
Date of Service August 11, 2023 Coding Level of Care Code 72460 INT INP/OBS CARE
== END 2023-08-10 18:12 | disposition home or self-care (01) ==
LOC: ED 19:49 → INTOOBSV 08-10 00:25 → EDINP 08-10 00:25 → SUATTDRO 08-10 00:25 → EDINP 08-10 02:55
DX: M06.9 Rheumatoid arthritis, unspecified; Z88.1 Allergy status to other antibiotic agents; Z79.52 Long term (current) use of systemic steroids; Z88.0 Allergy status to penicillin; E03.9 Hypothyroidism, unspecified; Z85.3 Personal history of malignant neoplasm of breast; D50.0 Iron deficiency anemia secondary to blood loss (chronic); Z79.899 Other long term (current) drug therapy; K92.2 Gastrointestinal hemorrhage, unspecified; Z79.890 Hormone replacement therapy